=== PATIENT | male | born 1940 | race Native Hawaiian/Other Pacific Islander ===

== ENCOUNTER 2019-06-26 09:58 | Outpatient (CLI) | payer OTHER ==
[2019-06-26 10:32] LABS: PARTIAL THROMBOPLASTIN TIME 33.3 SECONDS (24.5-33.6)
== END 2019-06-26 22:16 | disposition home or self-care (01) ==
LOC: LABW 09:58
PROVIDERS: Nurse Practitioner Family
DX: Z95.2 Presence of prosthetic heart valve (principal)
CPT/HCPCS: 36415; 85610; 85730

== ENCOUNTER 2019-08-27 15:01 | Outpatient (CLI) | payer OTHER | END 2019-08-27 22:31 | disposition home or self-care (01) | LOC: RESP 15:01 | DX: I08.0 Rheumatic disorders of both mitral and aortic valves (principal) | CPT/HCPCS: 93306 ==

== ENCOUNTER 2019-09-29 08:21 | Outpatient (CLI) | payer OTHER ==
[~2019-09-29] VITALS: Ht 172.7 cm; Wt 78.9 kg
== END 2019-09-29 19:59 | disposition home or self-care (01) ==
LOC: NM 08:21
DX: I35.8 Other nonrheumatic aortic valve disorders (principal)
CPT/HCPCS: A9500; J2785

== ENCOUNTER 2019-10-28 11:23 | Outpatient (CLI) | payer OTHER | END 2019-10-28 22:31 | disposition home or self-care (01) | LOC: LABW 11:23 | DX: Z79.01 Long term (current) use of anticoagulants (principal); Z79.899 Other long term (current) drug therapy; Z95.2 Presence of prosthetic heart valve | CPT/HCPCS: 36415; 85610 ==

== ENCOUNTER 2019-11-05 15:35 | Outpatient (CLI) | payer OTHER | END 2019-11-05 19:04 | disposition home or self-care (01) | LOC: LABW 15:35 | DX: I48.0 Paroxysmal atrial fibrillation (principal); Z95.2 Presence of prosthetic heart valve; Z79.1 Long term (current) use of non-steroidal anti-inflammatories (NSAID) | CPT/HCPCS: 36415; 85610 ==

== ENCOUNTER 2019-11-09 11:43 | Outpatient (CLI) | payer OTHER | END 2019-11-09 20:49 | disposition home or self-care (01) | LOC: LABW 11:43 | DX: I48.0 Paroxysmal atrial fibrillation (principal); Z95.2 Presence of prosthetic heart valve; Z79.1 Long term (current) use of non-steroidal anti-inflammatories (NSAID) | CPT/HCPCS: 36415; 85610 ==

== ENCOUNTER 2019-11-20 10:13 | Outpatient (CLI) | payer OTHER | END 2019-11-20 23:31 | disposition home or self-care (01) | LOC: LABW 10:13 | DX: I48.0 Paroxysmal atrial fibrillation (principal); Z95.2 Presence of prosthetic heart valve; Z79.1 Long term (current) use of non-steroidal anti-inflammatories (NSAID) | CPT/HCPCS: 36415; 85610 ==

== ENCOUNTER 2019-11-23 10:26 | Outpatient (CLI) | payer OTHER | END 2019-11-23 19:16 | disposition home or self-care (01) | LOC: LABW 10:26 | DX: I48.0 Paroxysmal atrial fibrillation (principal); Z95.2 Presence of prosthetic heart valve; Z79.1 Long term (current) use of non-steroidal anti-inflammatories (NSAID) | CPT/HCPCS: 36415; 85610 ==

== ENCOUNTER 2019-11-30 10:13 | Outpatient (CLI) | payer OTHER | END 2019-11-30 22:38 | disposition home or self-care (01) | LOC: LABW 10:13 | DX: I48.0 Paroxysmal atrial fibrillation (principal); Z95.2 Presence of prosthetic heart valve; Z79.01 Long term (current) use of anticoagulants | CPT/HCPCS: 36415; 85610 ==

== ENCOUNTER 2019-12-07 12:49 | Outpatient (CLI) | payer OTHER | END 2019-12-07 20:11 | disposition home or self-care (01) | LOC: LABW 12:49 | DX: I48.0 Paroxysmal atrial fibrillation (principal); Z95.2 Presence of prosthetic heart valve; Z79.01 Long term (current) use of anticoagulants | CPT/HCPCS: 36415; 85610 ==

== ENCOUNTER 2019-12-15 14:48 | Outpatient (CLI) | payer OTHER | END 2019-12-15 19:26 | disposition home or self-care (01) | LOC: LABW 14:48 | DX: I48.0 Paroxysmal atrial fibrillation (principal); Z95.2 Presence of prosthetic heart valve; Z79.01 Long term (current) use of anticoagulants | CPT/HCPCS: 36415; 85610 ==

== ENCOUNTER 2019-12-28 15:43 | Outpatient (CLI) | payer OTHER | END 2019-12-28 22:21 | disposition home or self-care (01) | LOC: LABW 15:43 | DX: I48.0 Paroxysmal atrial fibrillation (principal); Z95.2 Presence of prosthetic heart valve; Z79.01 Long term (current) use of anticoagulants | CPT/HCPCS: 36415; 85610 ==

== ENCOUNTER 2020-01-12 14:46 | Outpatient (CLI) | payer OTHER | END 2020-01-12 21:50 | disposition home or self-care (01) | LOC: LABW 14:46 | DX: I48.0 Paroxysmal atrial fibrillation (principal); Z95.2 Presence of prosthetic heart valve; Z79.01 Long term (current) use of anticoagulants | CPT/HCPCS: 36415; 85610 ==

== ENCOUNTER 2020-01-18 12:05 | Outpatient (CLI) | payer OTHER | END 2020-01-18 19:54 | disposition home or self-care (01) | LOC: LABW 12:05 | DX: I48.0 Paroxysmal atrial fibrillation (principal); Z95.2 Presence of prosthetic heart valve; Z79.1 Long term (current) use of non-steroidal anti-inflammatories (NSAID) | CPT/HCPCS: 36415; 85610 ==

== ENCOUNTER 2020-01-25 12:35 | Outpatient (CLI) | payer OTHER | END 2020-01-25 23:13 | disposition home or self-care (01) | LOC: LABW 12:35 | DX: I48.0 Paroxysmal atrial fibrillation (principal); Z95.2 Presence of prosthetic heart valve; Z79.01 Long term (current) use of anticoagulants | CPT/HCPCS: 36415; 85610 ==

== ENCOUNTER 2020-02-01 10:15 | Outpatient (CLI) | payer OTHER | END 2020-02-01 22:04 | disposition home or self-care (01) | LOC: LABW 10:15 | DX: G31.84 Mild cognitive impairment of uncertain or unknown etiology (principal) | CPT/HCPCS: 36415; 82607 ==

== ENCOUNTER 2020-02-08 12:10 | Outpatient (CLI) | payer OTHER | END 2020-02-08 19:30 | disposition home or self-care (01) | LOC: RAD 12:10 → LABW 12:10 | DX: M54.5 Low back pain (principal); Z95.2 Presence of prosthetic heart valve; I48.0 Paroxysmal atrial fibrillation; Z79.01 Long term (current) use of anticoagulants | CPT/HCPCS: 36415; 85610 ==

== ENCOUNTER 2020-02-23 13:07 | Outpatient (CLI) | payer OTHER | END 2020-02-23 22:33 | disposition home or self-care (01) | LOC: LABW 13:07 | DX: I48.0 Paroxysmal atrial fibrillation (principal); Z95.2 Presence of prosthetic heart valve; Z79.01 Long term (current) use of anticoagulants | CPT/HCPCS: 36415; 85610 ==

== ENCOUNTER 2020-03-03 15:54 | Outpatient (CLI) | payer OTHER | END 2020-03-03 22:55 | disposition home or self-care (01) | LOC: LABW 15:54 | DX: I48.0 Paroxysmal atrial fibrillation (principal); Z95.2 Presence of prosthetic heart valve; Z79.01 Long term (current) use of anticoagulants | CPT/HCPCS: 36415; 85610 ==

== ENCOUNTER 2020-03-07 09:13 | Outpatient (CLI) | payer OTHER | END 2020-03-07 19:27 | disposition home or self-care (01) | LOC: LABW 09:13 | DX: I48.0 Paroxysmal atrial fibrillation (principal); Z95.2 Presence of prosthetic heart valve; Z79.01 Long term (current) use of anticoagulants | CPT/HCPCS: 36415; 85610 ==

== ENCOUNTER 2020-03-09 13:23 | Outpatient (CLI) | payer OTHER | END 2020-03-09 19:07 | disposition home or self-care (01) | LOC: LABW 13:23 | DX: I48.0 Paroxysmal atrial fibrillation (principal); Z95.2 Presence of prosthetic heart valve; Z79.01 Long term (current) use of anticoagulants | CPT/HCPCS: 36415; 85610 ==

== ENCOUNTER 2020-03-14 13:48 | Outpatient (CLI) | payer OTHER | END 2020-03-14 23:59 | disposition home or self-care (01) | LOC: LABW 13:48 | DX: I48.0 Paroxysmal atrial fibrillation (principal); Z95.2 Presence of prosthetic heart valve; Z79.01 Long term (current) use of anticoagulants; Z79.1 Long term (current) use of non-steroidal anti-inflammatories (NSAID) | CPT/HCPCS: 36415; 85610 ==

== ENCOUNTER 2020-03-21 08:59 | Outpatient (CLI) | payer OTHER | END 2020-03-21 22:35 | disposition home or self-care (01) | LOC: LABW 08:59 | DX: I48.0 Paroxysmal atrial fibrillation (principal); Z95.2 Presence of prosthetic heart valve; Z79.01 Long term (current) use of anticoagulants | CPT/HCPCS: 36415; 85610 ==

== ENCOUNTER 2020-03-25 08:40 | Outpatient (CLI) | payer OTHER ==
[2020-03-25 10:00] LABS: PLATELET COUNT 157 K/uL (142-355)
[2020-03-25 10:32] LABS: POTASSIUM 4.2 mmol/L (3.6-5.2)
== END 2020-03-25 19:29 | disposition home or self-care (01) ==
LOC: LABW 08:40
PROVIDERS: Family Medicine
DX: I10 Essential (primary) hypertension (principal); E78.00 Pure hypercholesterolemia, unspecified; Z95.0 Presence of cardiac pacemaker; M19.90 Unspecified osteoarthritis, unspecified site; D64.89 Other specified anemias; J44.9 Chronic obstructive pulmonary disease, unspecified; Z95.2 Presence of prosthetic heart valve; M79.651 Pain in right thigh; M25.561 Pain in right knee; E55.9 Vitamin D deficiency, unspecified
CPT/HCPCS: 36415; 80053; 80061; 81000; 82306; 84443; 84550; 85027

== ENCOUNTER 2020-03-28 14:23 | Outpatient (CLI) | payer OTHER | END 2020-03-28 19:25 | disposition home or self-care (01) | LOC: LABW 14:23 | DX: I48.0 Paroxysmal atrial fibrillation (principal); Z95.2 Presence of prosthetic heart valve; Z79.01 Long term (current) use of anticoagulants | CPT/HCPCS: 36415; 85610 ==

== ENCOUNTER 2020-04-04 14:09 | Outpatient (CLI) | payer OTHER | END 2020-04-04 21:31 | disposition home or self-care (01) | LOC: LABW 14:09 | DX: I48.0 Paroxysmal atrial fibrillation (principal); Z95.2 Presence of prosthetic heart valve; Z79.01 Long term (current) use of anticoagulants | CPT/HCPCS: 36415; 85610 ==

== ENCOUNTER 2020-04-11 10:25 | Outpatient (CLI) | payer OTHER | END 2020-04-11 19:17 | disposition home or self-care (01) | LOC: LABW 10:25 | DX: I48.0 Paroxysmal atrial fibrillation (principal); Z95.2 Presence of prosthetic heart valve; Z79.01 Long term (current) use of anticoagulants | CPT/HCPCS: 36415; 85610 ==

== ENCOUNTER 2020-04-18 11:52 | Outpatient (CLI) | payer OTHER | END 2020-04-18 23:03 | disposition home or self-care (01) | LOC: LABW 11:52 | DX: I48.0 Paroxysmal atrial fibrillation (principal); Z95.2 Presence of prosthetic heart valve; Z79.01 Long term (current) use of anticoagulants | CPT/HCPCS: 36415; 85610 ==

== ENCOUNTER 2020-04-25 13:29 | Outpatient (CLI) | payer OTHER | END 2020-04-25 21:23 | disposition home or self-care (01) | LOC: LABW 13:29 | DX: I48.0 Paroxysmal atrial fibrillation (principal); Z95.2 Presence of prosthetic heart valve; Z79.01 Long term (current) use of anticoagulants | CPT/HCPCS: 36415; 85610 ==

== ENCOUNTER 2020-05-03 11:27 | Outpatient (CLI) | payer OTHER | END 2020-05-03 19:14 | disposition home or self-care (01) | LOC: LABW 11:27 | DX: I48.0 Paroxysmal atrial fibrillation (principal); Z95.2 Presence of prosthetic heart valve; Z79.1 Long term (current) use of non-steroidal anti-inflammatories (NSAID) | CPT/HCPCS: 36415; 85610 ==

== ENCOUNTER 2020-05-05 13:02 | Outpatient (CLI) | payer OTHER | END 2020-05-05 23:39 | disposition home or self-care (01) | LOC: LABW 13:02 | DX: I48.0 Paroxysmal atrial fibrillation (principal); Z95.2 Presence of prosthetic heart valve; Z79.01 Long term (current) use of anticoagulants | CPT/HCPCS: 36415; 85610 ==

== ENCOUNTER 2020-05-09 13:40 | Outpatient (CLI) | payer OTHER | END 2020-05-09 19:12 | disposition home or self-care (01) | LOC: LABW 13:40 | DX: I48.0 Paroxysmal atrial fibrillation (principal); Z95.2 Presence of prosthetic heart valve; Z79.01 Long term (current) use of anticoagulants | CPT/HCPCS: 36415; 85610 ==

== ENCOUNTER 2020-05-16 10:56 | Outpatient (CLI) | payer OTHER | END 2020-05-16 23:33 | disposition home or self-care (01) | LOC: LABW 10:56 | DX: I48.0 Paroxysmal atrial fibrillation (principal); Z95.2 Presence of prosthetic heart valve; Z79.01 Long term (current) use of anticoagulants | CPT/HCPCS: 36415; 85610 ==

== ENCOUNTER 2020-05-30 10:58 | Outpatient (CLI) | payer OTHER | END 2020-05-30 19:12 | disposition home or self-care (01) | LOC: LABW 10:58 | DX: I48.0 Paroxysmal atrial fibrillation (principal); Z95.2 Presence of prosthetic heart valve; Z79.01 Long term (current) use of anticoagulants | CPT/HCPCS: 36415; 85610 ==

== ENCOUNTER 2020-06-13 11:05 | Outpatient (CLI) | payer OTHER | END 2020-06-13 20:30 | disposition home or self-care (01) | LOC: LABW 11:05 | DX: I48.0 Paroxysmal atrial fibrillation (principal); Z95.2 Presence of prosthetic heart valve; Z79.01 Long term (current) use of anticoagulants | CPT/HCPCS: 36415; 85610 ==

== ENCOUNTER 2020-06-20 09:33 | Outpatient (CLI) | payer OTHER | END 2020-06-20 23:23 | disposition home or self-care (01) | LOC: LABW 09:33 | DX: I48.0 Paroxysmal atrial fibrillation (principal); Z95.2 Presence of prosthetic heart valve; Z79.01 Long term (current) use of anticoagulants | CPT/HCPCS: 36415; 85610 ==

== ENCOUNTER 2020-06-27 09:01 | Outpatient (CLI) | payer OTHER | END 2020-06-27 19:05 | disposition home or self-care (01) | LOC: LABW 09:01 | DX: I48.0 Paroxysmal atrial fibrillation (principal); Z95.2 Presence of prosthetic heart valve; Z79.01 Long term (current) use of anticoagulants | CPT/HCPCS: 36415; 85610 ==

== ENCOUNTER 2020-07-04 08:56 | Outpatient (CLI) | payer OTHER | END 2020-07-04 23:10 | disposition home or self-care (01) | LOC: LABW 08:56 | PROVIDERS: ATTEND Nurse Practitioner Adult Health | DX: I48.0 Paroxysmal atrial fibrillation (principal); Z95.2 Presence of prosthetic heart valve; Z79.01 Long term (current) use of anticoagulants | CPT/HCPCS: 36415; 85610 ==

== ENCOUNTER 2020-07-11 11:44 | Outpatient (CLI) | payer OTHER | END 2020-07-11 19:11 | disposition home or self-care (01) | LOC: LABW 11:44 | PROVIDERS: ATTEND Specialist | DX: I48.0 Paroxysmal atrial fibrillation (principal); Z95.2 Presence of prosthetic heart valve; Z79.01 Long term (current) use of anticoagulants | CPT/HCPCS: 36415; 85610 ==

== ENCOUNTER 2020-07-16 18:03 | Emergency (ER) | payer OTHER ==
[~2020-07-16] VITALS: Ht 182.9 cm; Wt 79.4 kg
[2020-07-16 20:36] VITALS: BP 109/64; TEMP 98.4
== END 2020-07-16 20:36 | disposition home or self-care (01) ==
LOC: ED 18:03
DX: S42.294A Other nondisplaced fracture of upper end of right humerus, initial encounter for closed fracture (principal); S01.111A Laceration without foreign body of right eyelid and periocular area, initial encounter; R90.82 White matter disease, unspecified; W18.39XA Other fall on same level, initial encounter; Y92.098 Other place in other non-institutional residence as the place of occurrence of the external cause
CPT/HCPCS: 99283

== ENCOUNTER 2020-07-20 15:41 | Inpatient (IN) | payer OTHER ==
[~2020-07-20] VITALS: Ht 182.9 cm; Wt 85.3 kg
[2020-07-20] VITALS (12 sets, daily range): BP systolic 110–181; BP diastolic 46–87; TEMP 98.2
[2020-07-20] MEDS ORDERED: METO50TA27 PO (15:54)
[2020-07-20] MEDS ORDERED: LIPITOR40 MG PO (15:54)
[2020-07-20] MEDS ORDERED: WARF5TAB6 PO (15:55)
[2020-07-20] MEDS ORDERED: WARF10TA5 PO (15:55)
[2020-07-20 16:04] LABS: PLATELET COUNT 174 K/uL (142-355)
[2020-07-21] VITALS (7 sets, daily range): BP systolic 120–148; BP diastolic 69–87; TEMP 97.7–98.8; Ht 182.9 cm; Wt 85.3 kg
[2020-07-21 05:38] LABS: PLATELET COUNT 153 K/uL (142-355)
[2020-07-21 06:33] LABS: POTASSIUM 4.1 mmol/L (3.6-5.2)
[2020-07-22] VITALS (7 sets, daily range): BP systolic 125–152; BP diastolic 43–78; TEMP 97.8–98.6
[2020-07-22 06:16] LABS: POTASSIUM 4.1 mmol/L (3.6-5.2)
[2020-07-22 06:20] LABS: PLATELET COUNT 158 K/uL (142-355)
[2020-07-23 04:00] VITALS: BP 146/72; TEMP 98.5
[2020-07-23 05:58] LABS: PLATELET COUNT 193 K/uL (142-355)
[2020-07-23 06:25] LABS: POTASSIUM 3.9 mmol/L (3.6-5.2)
[2020-07-23 08:00] VITALS: BP 138/75; TEMP 97.5
[2020-07-23 12:00] VITALS: BP 105/60; TEMP 97.5
[2020-07-23 16:00] VITALS: BP 117/62; TEMP 97.6
[2020-07-23 19:43] VITALS: BP 116/60; TEMP 99.9
[2020-07-23 23:34] VITALS: BP 154/76; TEMP 99.4
[2020-07-24 03:50] VITALS: BP 127/73; TEMP 98.9
[2020-07-24 05:56] LABS: PLATELET COUNT 206 K/uL (142-355)
[2020-07-24 06:44] LABS: POTASSIUM 3.9 mmol/L (3.6-5.2)
[2020-07-24 08:00] VITALS: BP 119/71; TEMP 98.8
[2020-07-24 12:00] VITALS: BP 121/66; TEMP 98
[2020-07-24 16:00] VITALS: BP 126/72; TEMP 98.6
[2020-07-24 19:53] VITALS: BP 117/58; TEMP 99.7
[2020-07-24 23:32] VITALS: BP 145/80; TEMP 98.6
[2020-07-25 03:44] VITALS: BP 141/72; TEMP 98.7
[2020-07-25 05:24] LABS: PLATELET COUNT 233 K/uL (142-355)
[2020-07-25 05:32] LABS: POTASSIUM 3.9 mmol/L (3.6-5.2)
[2020-07-25 08:00] VITALS: BP 159/89; TEMP 98.7
[2020-07-25 12:00] VITALS: BP 138/57; TEMP 99.8
[2020-07-25 16:00] VITALS: BP 123/57; TEMP 98.7
[2020-07-25 20:00] VITALS: BP 123/72; TEMP 99.2
[2020-07-26] VITALS: BP 134/75; TEMP 98.6
[2020-07-26 04:00] VITALS: BP 133/87; TEMP 98.7
[2020-07-26 08:00] VITALS: BP 138/78; TEMP 99.9
[2020-07-26 12:00] VITALS: BP 133/69
[2020-07-26] MEDS ORDERED: HYDR5TAB9 PO (13:09)
== END 2020-07-26 19:00 | disposition home or self-care (01) | DRG 190 ==
LOC: ED 15:41 → MED/SURG 19:37
PROVIDERS: Family Medicine; ADMIT Internal Medicine Endocrinology, Diabetes & Metabolism; ATTEND Internal Medicine Endocrinology, Diabetes & Metabolism
DX: J44.0 Chronic obstructive pulmonary disease with (acute) lower respiratory infection (principal); J18.8 Other pneumonia, unspecified organism; J96.01 Acute respiratory failure with hypoxia; S42.301A Unspecified fracture of shaft of humerus, right arm, initial encounter for closed fracture; I10 Essential (primary) hypertension; E78.49 Other hyperlipidemia; T79.6XXA Traumatic ischemia of muscle, initial encounter; Z95.4 Presence of other heart-valve replacement
CPT/HCPCS: 36415; 36600; 80048; 80053; 82550; 82553; 82805; 83605; 83880; 84484; 85027; 85379; 85610; 85730; 87040; 87070; 87077; 87186; 87205; 87635; 93005; 94640; 94664; 94760; 96365; 96375; 99284; J0456; J0696; J1170; J1650; J2930; J3430; Q9963; U0003

== ENCOUNTER 2020-11-22 09:42 | Outpatient (CLI) | payer OTHER ==
[~2020-11-22 09:42] MED LIST: HYDR5TAB9 PO; LIPITOR40 MG PO; METO50TA27 PO; WARF10TA5 PO; WARF5TAB6 PO
== END 2020-11-22 19:11 | disposition home or self-care (01) ==
LOC: LABW 09:42
PROVIDERS: ATTEND Internal Medicine Interventional Cardiology
DX: I48.0 Paroxysmal atrial fibrillation (principal); Z95.2 Presence of prosthetic heart valve; Z79.01 Long term (current) use of anticoagulants
CPT/HCPCS: 36415; 85610

== ENCOUNTER 2020-12-05 08:56 | Outpatient (CLI) | payer OTHER | END 2020-12-05 19:42 | disposition home or self-care (01) | LOC: LABW 08:56 | PROVIDERS: ATTEND Nurse Practitioner Adult Health | DX: I48.0 Paroxysmal atrial fibrillation (principal); Z95.2 Presence of prosthetic heart valve; Z79.01 Long term (current) use of anticoagulants | CPT/HCPCS: 36415; 85610 ==

== ENCOUNTER 2020-12-27 09:26 | Outpatient (CLI) | payer OTHER | END 2020-12-27 21:58 | disposition home or self-care (01) | LOC: LABW 09:26 | PROVIDERS: ATTEND Nurse Practitioner Adult Health | DX: I35.0 Nonrheumatic aortic (valve) stenosis (principal); Z95.2 Presence of prosthetic heart valve; Z09 Encounter for follow-up examination after completed treatment for conditions other than malignant neoplasm | CPT/HCPCS: 36415; 85610 ==

== ENCOUNTER 2021-01-16 11:34 | Outpatient (CLI) | payer OTHER | END 2021-01-16 19:07 | disposition home or self-care (01) | LOC: LABW 11:34 | PROVIDERS: ATTEND Nurse Practitioner Adult Health | DX: I35.0 Nonrheumatic aortic (valve) stenosis (principal); Z95.2 Presence of prosthetic heart valve; Z79.899 Other long term (current) drug therapy | CPT/HCPCS: 36415; 85610 ==

== ENCOUNTER 2021-02-07 12:46 | Outpatient (CLI) | payer OTHER | END 2021-02-07 14:00 | disposition home or self-care (01) | LOC: LABW 12:46 | PROVIDERS: ATTEND Nurse Practitioner Adult Health | DX: I35.0 Nonrheumatic aortic (valve) stenosis (principal); Z95.2 Presence of prosthetic heart valve | CPT/HCPCS: 36415; 85610 ==

== ENCOUNTER 2021-02-20 13:26 | Outpatient (CLI) | payer OTHER | END 2021-02-20 23:00 | disposition home or self-care (01) | LOC: LABW 13:26 | PROVIDERS: ATTEND Nurse Practitioner Adult Health | DX: I35.0 Nonrheumatic aortic (valve) stenosis (principal); Z95.2 Presence of prosthetic heart valve; Z79.899 Other long term (current) drug therapy | CPT/HCPCS: 36415; 85610 ==

== ENCOUNTER 2021-02-28 15:11 | Outpatient (CLI) | payer OTHER | END 2021-02-28 22:38 | disposition home or self-care (01) | LOC: LABW 15:11 | PROVIDERS: ATTEND Nurse Practitioner Adult Health | DX: I35.0 Nonrheumatic aortic (valve) stenosis (principal); Z95.2 Presence of prosthetic heart valve; Z79.899 Other long term (current) drug therapy | CPT/HCPCS: 36415; 85610 ==

== ENCOUNTER 2021-03-07 10:37 | Outpatient (CLI) | payer OTHER | END 2021-03-07 21:35 | disposition home or self-care (01) | LOC: LABW 10:37 | PROVIDERS: ATTEND Nurse Practitioner Adult Health | DX: I35.0 Nonrheumatic aortic (valve) stenosis (principal); Z95.2 Presence of prosthetic heart valve | CPT/HCPCS: 36415; 85610 ==

== ENCOUNTER 2021-03-13 10:25 | Outpatient (CLI) | payer OTHER | END 2021-03-13 21:00 | disposition home or self-care (01) | LOC: LABW 10:25 | PROVIDERS: ATTEND Nurse Practitioner Adult Health | DX: I35.0 Nonrheumatic aortic (valve) stenosis (principal); Z95.2 Presence of prosthetic heart valve; Z79.899 Other long term (current) drug therapy | CPT/HCPCS: 36415; 85610 ==

== ENCOUNTER 2021-03-20 10:58 | Outpatient (CLI) | payer OTHER | END 2021-03-20 22:41 | disposition home or self-care (01) | LOC: LABW 10:58 | PROVIDERS: ATTEND Nurse Practitioner Adult Health | DX: I35.0 Nonrheumatic aortic (valve) stenosis (principal); Z95.2 Presence of prosthetic heart valve; Z79.899 Other long term (current) drug therapy | CPT/HCPCS: 36415; 85610 ==

== ENCOUNTER 2021-03-27 10:03 | Outpatient (CLI) | payer OTHER | END 2021-03-27 21:43 | disposition home or self-care (01) | LOC: LABW 10:03 | PROVIDERS: ATTEND Nurse Practitioner Adult Health | DX: I35.0 Nonrheumatic aortic (valve) stenosis (principal); Z95.2 Presence of prosthetic heart valve; Z79.899 Other long term (current) drug therapy | CPT/HCPCS: 36415; 85610 ==

== ENCOUNTER 2021-04-03 08:50 | Outpatient (CLI) | payer OTHER | END 2021-04-03 19:07 | disposition home or self-care (01) | LOC: LABW 08:50 | PROVIDERS: ATTEND Nurse Practitioner Adult Health | DX: I35.0 Nonrheumatic aortic (valve) stenosis (principal); Z95.2 Presence of prosthetic heart valve; Z79.899 Other long term (current) drug therapy | CPT/HCPCS: 36415; 85610 ==

== ENCOUNTER 2021-04-10 09:59 | Outpatient (CLI) | payer OTHER | END 2021-04-10 21:45 | disposition home or self-care (01) | LOC: LABW 09:59 | PROVIDERS: ATTEND Nurse Practitioner Adult Health | DX: I35.0 Nonrheumatic aortic (valve) stenosis (principal); Z95.2 Presence of prosthetic heart valve | CPT/HCPCS: 36415; 85610 ==

== ENCOUNTER 2021-04-17 09:40 | Outpatient (CLI) | payer OTHER | END 2021-04-17 21:12 | disposition home or self-care (01) | LOC: LABW 09:40 | PROVIDERS: ATTEND Nurse Practitioner Adult Health | DX: I35.0 Nonrheumatic aortic (valve) stenosis (principal); Z95.2 Presence of prosthetic heart valve; Z79.899 Other long term (current) drug therapy | CPT/HCPCS: 36415; 85610 ==

== ENCOUNTER 2021-04-20 09:44 | Outpatient (CLI) | payer OTHER | END 2021-04-20 22:12 | disposition home or self-care (01) | LOC: RAD 09:44 → LABW 09:44 → RAD 22:12 | PROVIDERS: ATTEND Family Medicine | DX: R05 Cough (principal); Z91.89 Other specified personal risk factors, not elsewhere classified; L89.90 Pressure ulcer of unspecified site, unspecified stage; R32 Unspecified urinary incontinence | CPT/HCPCS: 81000 ==

== ENCOUNTER 2021-04-24 09:38 | Outpatient (CLI) | payer OTHER | END 2021-04-24 18:56 | disposition home or self-care (01) | LOC: LABW 09:38 | PROVIDERS: ATTEND Specialist | DX: I35.0 Nonrheumatic aortic (valve) stenosis (principal); Z95.2 Presence of prosthetic heart valve | CPT/HCPCS: 36415; 85610 ==

== ENCOUNTER 2021-05-01 09:48 | Outpatient (CLI) | payer OTHER | END 2021-05-01 22:15 | disposition home or self-care (01) | LOC: LABW 09:48 | PROVIDERS: ATTEND Nurse Practitioner Adult Health | DX: R35.1 Nocturia (principal); I35.0 Nonrheumatic aortic (valve) stenosis; Z95.2 Presence of prosthetic heart valve | CPT/HCPCS: 36415; 84154; 85610 ==

== ENCOUNTER 2021-05-08 09:09 | Outpatient (CLI) | payer OTHER | END 2021-05-08 20:12 | disposition home or self-care (01) | LOC: LABW 09:09 | PROVIDERS: ATTEND Nurse Practitioner Adult Health | DX: I35.0 Nonrheumatic aortic (valve) stenosis (principal); Z95.2 Presence of prosthetic heart valve; Z79.899 Other long term (current) drug therapy | CPT/HCPCS: 36415; 85610 ==

== ENCOUNTER 2021-05-15 12:14 | Outpatient (CLI) | payer OTHER | END 2021-05-15 20:07 | disposition home or self-care (01) | LOC: LABW 12:14 | PROVIDERS: ATTEND Nurse Practitioner Adult Health | DX: I35.0 Nonrheumatic aortic (valve) stenosis (principal); Z95.2 Presence of prosthetic heart valve; Z79.899 Other long term (current) drug therapy | CPT/HCPCS: 36415; 85610 ==

== ENCOUNTER 2021-05-29 10:15 | Outpatient (CLI) | payer OTHER | END 2021-05-29 19:32 | disposition home or self-care (01) | LOC: LABW 10:15 | PROVIDERS: ATTEND Nurse Practitioner Adult Health | DX: I35.0 Nonrheumatic aortic (valve) stenosis (principal); Z95.2 Presence of prosthetic heart valve; Z79.899 Other long term (current) drug therapy | CPT/HCPCS: 36415; 85610 ==

== ENCOUNTER 2021-06-12 10:48 | Outpatient (CLI) | payer OTHER | END 2021-06-12 19:06 | disposition home or self-care (01) | LOC: LABW 10:48 | PROVIDERS: ATTEND Nurse Practitioner Adult Health | DX: I35.0 Nonrheumatic aortic (valve) stenosis (principal); Z95.2 Presence of prosthetic heart valve; Z79.899 Other long term (current) drug therapy | CPT/HCPCS: 36415; 85610 ==

== ENCOUNTER 2021-06-14 08:54 | Outpatient (CLI) | payer OTHER ==
[2021-06-14 09:49] LABS: POTASSIUM 3.9 mmol/L (3.6-5.2)
[2021-06-14 09:54] LABS: PLATELET COUNT 149 K/uL (142-355)
== END 2021-06-14 19:15 | disposition home or self-care (01) ==
LOC: LABW 08:54
PROVIDERS: ATTEND Family Medicine
DX: G25.2 Other specified forms of tremor (principal); M79.641 Pain in right hand; I10 Essential (primary) hypertension; I48.0 Paroxysmal atrial fibrillation; E78.00 Pure hypercholesterolemia, unspecified; R35.1 Nocturia; E55.9 Vitamin D deficiency, unspecified; D64.89 Other specified anemias; E53.8 Deficiency of other specified B group vitamins
CPT/HCPCS: 36415; 80053; 80061; 81000; 82306; 82607; 84439; 84443; 85027

== ENCOUNTER 2021-06-14 09:21 | Outpatient (CLI) | payer OTHER | END 2021-06-14 19:17 | disposition home or self-care (01) | LOC: RAD 09:21 | PROVIDERS: ATTEND Family Medicine | DX: M79.641 Pain in right hand (principal) ==

== ENCOUNTER 2021-06-26 11:23 | Outpatient (CLI) | payer OTHER | END 2021-06-26 20:23 | disposition home or self-care (01) | LOC: LABW 11:23 | PROVIDERS: ATTEND Nurse Practitioner Adult Health | DX: I35.0 Nonrheumatic aortic (valve) stenosis (principal); Z95.2 Presence of prosthetic heart valve; Z79.899 Other long term (current) drug therapy | CPT/HCPCS: 36415; 85610 ==

== ENCOUNTER 2022-04-13 11:21 | Outpatient (CLI) | payer OTHER | END 2022-04-13 21:03 | disposition home or self-care (01) | LOC: RAD 11:21 | PROVIDERS: ATTEND Family Medicine | DX: J44.9 Chronic obstructive pulmonary disease, unspecified (principal); R05.9 Cough, unspecified ==

== ENCOUNTER 2022-10-08 16:22 | Outpatient (CLI) | payer OTHER | END 2022-10-08 19:42 | disposition home or self-care (01) | LOC: RAD 16:22 | PROVIDERS: ATTEND Family Medicine | DX: R05.9 Cough, unspecified (principal); J44.9 Chronic obstructive pulmonary disease, unspecified ==

== ENCOUNTER 2023-02-12 12:09 | Outpatient (CLI) | payer OTHER | END 2023-02-12 20:35 | disposition home or self-care (01) | LOC: RAD 12:09 | PROVIDERS: ATTEND Family Medicine | DX: M54.89 Other dorsalgia (principal); M25.552 Pain in left hip; W19.XXXA Unspecified fall, initial encounter; M25.562 Pain in left knee; M25.572 Pain in left ankle and joints of left foot ==

== ENCOUNTER 2023-03-30 11:11 | Observation (INO) | payer OTHER ==
[~2023-03-30] VITALS: Ht 182.9 cm; Wt 76.0 kg
[2023-03-30] VITALS (11 sets, daily range): BP systolic 128–162; BP diastolic 56–106; TEMP 98–99.7; Ht 182.9 cm; Wt 76.0 kg
[2023-03-30 12:21] LABS: PLATELET COUNT 142 K/uL (142-355)
[2023-03-30 12:52] LABS: POTASSIUM 4.1 mmol/L (3.6-5.2)
[2023-03-30 12:54] LABS: PARTIAL THROMBOPLASTIN TIME 42.1 SECONDS (23.9-36.7)
[2023-03-30] MEDS ORDERED: PRAMIPEXOLE0.25 MG PO (19:43)
[2023-03-30] MEDS ORDERED: BACLOFEN20 MG PO (19:44)
[2023-03-30] MEDS ORDERED: PERCOCET1 TA1 PO (19:46)
[2023-03-30] MEDS ORDERED: [UNRECOGNIZED DRUG - OTHER] OPTH (19:48)
[2023-03-30] MEDS ORDERED: TAMS0.4C PO (19:49)
[2023-03-30] MEDS ORDERED: STIOLTO RESPIMA1 AER INH (19:51)
[2023-03-30] MEDS ORDERED: FLUTMIS6 INH (19:56)
[2023-03-30] MEDS ORDERED: ALBUTEROL0.083 % INH (19:58)
[2023-03-30] MEDS ORDERED: IPRASOL5 INH (20:00)
[2023-03-30] MEDS ORDERED: WARF2TAB7 PO (20:06)
[2023-03-31] VITALS (7 sets, daily range): BP systolic 153–186; BP diastolic 78–100; TEMP 97.8–99.3
[2023-04-01 04:00] VITALS: BP 138/51; TEMP 98.6
[2023-04-01 04:37] LABS: PLATELET COUNT 169 K/uL (142-355)
[2023-04-01 08:13] VITALS: BP 130/64; TEMP 98.7
[2023-04-01 12:00] VITALS: BP 132/77; TEMP 98.1
[2023-04-01 16:22] VITALS: BP 130/69; TEMP 98.4
[2023-04-01] MEDS ORDERED: AMOX500T5 PO (16:59)
== END 2023-04-01 22:14 | disposition home or self-care (01) ==
LOC: ED 11:11 → MED/SURG 14:14
PROVIDERS: ADMIT Family Medicine; ATTEND Internal Medicine
DX: R41.82 Altered mental status, unspecified (principal); G20 Parkinson's disease; Z95.0 Presence of cardiac pacemaker; Z95.4 Presence of other heart-valve replacement; Z79.01 Long term (current) use of anticoagulants; E78.49 Other hyperlipidemia; N40.0 Benign prostatic hyperplasia without lower urinary tract symptoms; J44.9 Chronic obstructive pulmonary disease, unspecified; I10 Essential (primary) hypertension; Z87.891 Personal history of nicotine dependence
CPT/HCPCS: 36415; 80053; 80307; 81002; 82550; 84484; 85027; 85610; 85730; 93005; 94664; 94760; 96361; 96374; 96375; 96376; 99221; 99283; G0378; J0360; J3490